=== PATIENT | male | born 1980 | race Caucasian/White ===

== ENCOUNTER 2021-11-12 20:31 | Emergency (ER) | payer SELFPAY ==
[2021-11-12 20:36] VITALS: BP 148/73
[2021-11-12] MEDS ORDERED: IBUPROFEN 600 MG TABLET PO STA (21:03)
[2021-11-12] MEDS ORDERED: DOXYCYCLINE 100 MG TABLET PO STA (21:03)
[2021-11-12] MEDS ORDERED: diphenhydrAMINE 25 MG CAPSULE PO STA (21:04)
--- NOTE | 2021-11-12 21:07 | ED Physician Documentation ---
History of Present Illness - Stated complaint Stated Complaint: RASH - Chief complaint Chief Complaint: General - Additonal information Additional information: Patient is a 41-year-old male presenting to the emergency department with chief complaint of rash. Reports pruritic, painful rash on his lower extremities and buttocks. Is uncertain how long they have been present. Reports that he is an infrequent drinker but denies substance abuse. Denies known bug bites but does report that the place he has been sleeping for the last week has "shit tons of spiders". Reports recently returns from [place] where he works on a [employer] [place]. He denies any known allergies, changes in medication, fever, mucous membrane involvement. Also reports chronic ankle, knee and back pain. States "I hurt everywhere all of the time". States occasionally takes Tylenol for this. He denies any new trauma or fall. Reports has not followed up with primary care or been seen by doctor about these issues in years. Review of Systems Ten Systems: 10 systems reviewed and negative Constitutional: denies: Fever Eyes: denies: Loss of vision Ears: denies: Loss of hearing Nose: denies: Rhinorrhea / runny nose Throat: denies: Dental pain / toothache Cardiac: denies: Chest pain / pressure Respiratory: denies: Dyspnea GI: denies: Abdominal Pain : denies: Dysuria Skin: reports: Rash, Bite / sting Musculoskeletal: denies: Neck pain Neurologic: denies: Generalized weakness PD PAST MEDICAL HISTORY - Present Medications Home Medications: Ambulatory Orders Medication Instructions Recorded Confirmed Bacitracin Zinc Oint 1 applic TOP BID #1 gm 11/12/21 Doxycycline Hyclate 100 mg PO BID #20 tablet 11/12/21 Ibuprofen [Motrin] 1 tablet PO Q8H PRN #30 tablet 11/12/21 diphenhydrAMINE [Benadryl] 25 mg PO HS #30 cap 11/12/21 - Allergies Allergies/Adverse Reactions: Allergies Allergy/AdvReac Type Severity Reaction Status Date / Time No Known Drug Allergies Allergy Verified 11/12/21 20:34 PD ED PE NORMAL - Vitals Vital signs reviewed: Yes - General General: Alert and oriented X 3, No acute distress - HEENT HEENT: Atraumatic - Neck Neck: Supple, no meningeal sign - Cardiac Cardiac: RRR - Respiratory Respiratory: No respiratory distress, Clear bilaterally - Abdomen Abdomen: Normal bowel sounds - Rectal Rectal: Deferred - Back Back: No CVA TTP - Derm Derm: Other (There are multiple prominent excoriations noted on the patient's lower extremities and buttocks.) Results - Vitals Vitals: Vital Signs - 24 hr 11/12/21 20:34 Temperature 36.5 C Heart Rate 90 Respiratory 18 Rate Blood Pressure 148/73 H O2 Saturation 99 Oxygen O2 Source Room air PD MEDICAL DECISION MAKING - ED course Complexity details: d/w patient, d/w family ED course: Patient is 41-year-old male presenting to the emergency department with chief complaint of rash prominently on his lower extremities and buttocks. In addition to this he reported chronic pain in his knees and ankles. While in the emergency department he demonstrated a low level psychomotor agitation but was mentating well, and demonstrated decision-making capacity. He denied any substance abuse. Physical exam demonstrated multiple areas of excoriation on the lower extremities, posterior thighs and buttocks. [id number] ultrasonography was negative for any abscess however some mild erythema was noted in multiple locations concerning for possible developing infection. Patient deniedSmoking during our conversation as well but was noted to have a pack of cigarettes in his pocket while in the emergency department. He is otherwise afebrile and hemodynamically stable here. There is no indication of toxic epidermal necrolysis, Finley Johnsons, Staph scalded skin, or other life-threatening infection or skin condition at this time. Will initiate course of doxycycline. Initially we will start patient on oral Benadryl for pruritus. Instructed in use of topical bacitracin with prescription sent to his preferred pharmacy. Additionally he was provided contact information for local area [facility] in order to establish himself with primary care. Otherwise clear return precautions and follow-up instructions were given prior to discharge. Departure - Departure Disposition: 01 Home, Self Care Clinical Impression: Skin excoriation, Skin infection, Chronic pain Instructions: ANTI-INFLAMMATORY, General, IBUPROFEN (Adult) Follow-Up: Latricia Solomon ARNP [Provider Admit Priv/Credential] - Prescriptions: Bacitracin Zinc Oint 1 applic TOP BID #1 gm diphenhydrAMINE [Benadryl] 25 mg PO HS #30 cap Doxycycline Hyclate 100 mg PO BID #20 tablet Ibuprofen [Motrin] 1 tablet PO Q8H PRN #30 tablet PRN Reason: PAIN &/OR FEVER Comments: Thank you for allowing us to care for you today at [facility]. Prescription sent electronically to [facility] in [place]. You have multiple areas of excoriation on your lower extremities and buttocks. Ultrasound performed in the emergency department today did not show any abscess however I would like you to begin a course of oral and topical antibiotic o intment. Also be discharging you with some oral Benadryl to take for any itching as well as a high-dose nonsteroidal anti-inflammatory medication to help with any pain either associated with your lesions or for your chronic pain. It is very important that you establish yourself with a primary care doctor. I have included contact information for local area [facility] who is excepting patients at this time. Please call them first thing tomorrow in order to establish care and make a follow-up appointment. Please drink plenty fluids and get plenty of rest. If it anytime you have any new or worsening symptoms please not hesitate to return.
== END 2021-11-12 21:31 | disposition home or self-care (01) ==
LOC: ED 20:31
DX: F42.4 Excoriation (skin-picking) disorder (principal); G89.29 Other chronic pain; B99.9 Unspecified infectious disease
CPT/HCPCS: 99282; 99284; A9270

== ENCOUNTER 2022-02-06 14:24 | Outpatient (CLI) | payer MEDICAID ==
--- NOTE | 2022-02-06 15:28 | XRAY Report ---
PROCEDURE: Knee 3 View RT INDICATIONS: PAIN IN RIGHT KNEE TECHNIQUE: 3 views of the right knee(s) were acquired. COMPARISON: None. FINDINGS: Bones: No fractures or dislocations. No suspicious bony lesions. Corticated ossicles in the area of the medial femoral condyle is likely sequelae of old injury. Mild tricompartmental knee joint degene ration. Soft tissues: Small joint effusion. No suspicious soft tissue calcifications. IMPRESSION: 1. Mild tricompartment degenerative joint disease. 2. Corticated ossicles adjacent to the medial femoral condyle, likely sequelae of old injury. 3. Small knee joint effusion. 4. If clinical symptoms persist or there is clinical suspicion for internal derangement, MRI would be helpful. Reviewed by: Dorcas Vogt MD on 02/06/2022 3:26 PM PST Approved by: Dorcas Vogt MD on 02/06/2022 3:26 PM PST Station ID: [id number]
== END 2022-02-06 14:25 | disposition home or self-care (01) ==
LOC: DI.S 14:24
PROVIDERS: ATTEND Registered Nurse
DX: M17.11 Unilateral primary osteoarthritis, right knee (principal); M25.461 Effusion, right knee